=== PATIENT | female | born 1995 | race Hispanic/Latino ===

== ENCOUNTER 2017-01-04 21:54 | Emergency (ER) | payer OTHER ==
[~2017-01-04] VITALS: Ht 154.9 cm; Wt 73.9 kg
[~2017-01-04 21:54] MED LIST: NO MEDICATIONS; ZOFRAN4 MG PO
[2017-01-04 21:59] VITALS: BP 127/78
[2017-01-05] MEDS ORDERED: AMOXICILLIN500 M1 PO (00:34)
== END 2017-01-05 00:56 | disposition home or self-care (01) ==
LOC: EME 21:54
DX: K04.7 Periapical abscess without sinus (principal); Z98.818 Other dental procedure status
CPT/HCPCS: 99281; 99284

== ENCOUNTER 2017-09-07 15:12 | Emergency (ER) | payer OTHER ==
[~2017-09-07] VITALS: Ht 154.9 cm; Wt 74.9 kg
[~2017-09-07 15:12] MED LIST changes: +AMOXICILLIN500 M1 PO
[2017-09-07 16:07] VITALS: BP 112/69
== END 2017-09-07 16:24 | disposition left against medical advice (07) ==
LOC: EME 15:12
DX: R07.9 Chest pain, unspecified (principal); Z53.21 Procedure and treatment not carried out due to patient leaving prior to being seen by health care provider
CPT/HCPCS: 93005

== ENCOUNTER 2017-09-13 20:43 | Emergency (ER) | payer OTHER ==
[~2017-09-13] VITALS: Ht 154.9 cm; Wt 74.6 kg
[2017-09-13 20:59] LABS: ADD MIUA? NO; BILIRUBIN NEGATIVE; BLOOD NEGATIVE; COLOR STRAW ((YELLOW)); GLUCOSE (STRIP) NEGATIVE; KETONES 20; LEUKOCYTES NEGATIVE; NITRITE NEGATIVE; PROTEIN (STRIP) NEGATIVE; SPECIFIC GRAVITY 1.006 (1.000-1.030); UCUL ADDED? NO; UROBILINOGEN 0.2 MG/DL (0.2-1.0)
[2017-09-13 21:03] LABS: MCH 27.9 PG (29.0-34.0); MCHC 32.7 G/DL (30.0-36.0); MCV 85.3 FL (83-99); MEAN PLAT.VOLUME 11.4 uM^3 (9.5-12.4); PLATELET COUNT 197 K/uL (156-360); RBC DIS.WIDTH-CV 14.1 % (11.8-14.6); RBC DIS.WIDTH-SD 43.4 % (39-53); RED BLOOD COUNT 3.87 M/uL (3.80-5.20); WHITE BLOOD COUNT 7.3 K/uL (4.1-10.2)
[2017-09-13 21:23] LABS: CHLORIDE 106 mEq/L (99-109); POTASSIUM 3.5 mEq/L (3.7-5.4); SODIUM 139 mEq/L (136-147)
[2017-09-13 21:25] LABS: GLUCOSE 88 mg/dL (70-99)
[2017-09-13 21:26] LABS: ANION GAP 9 MEQ/L (2-14)
[2017-09-13 21:27] LABS: TOTAL BILIRUBIN 0.5 mg/dL (0.0-1.0)
[2017-09-13 21:28] LABS: ALKALINE PHOSPHATASE 85 IU/L (3-129)
[2017-09-13 21:29] LABS: GFR ESTIMATE (CALCULATED) > 59 mL/min/
[2017-09-13 21:30] LABS: UREA NITROGEN (BUN) 10 mg/dL (9-23)
[2017-09-13 21:39] LABS: QUANTITATIVE HCG < 4.0 MIU/ML
[2017-09-13] MEDS ORDERED: ZANTAC150 MG PO (21:46)
[2017-09-13] MEDS ORDERED: ZOFRAN ODT4 MG PO (21:46)
[2017-09-13 22:07] VITALS: BP 113/68
== END 2017-09-13 22:08 | disposition home or self-care (01) ==
LOC: EME 20:43
DX: K21.9 Gastro-esophageal reflux disease without esophagitis (principal); R11.10 Vomiting, unspecified
CPT/HCPCS: 80053; 81003; 84702; 85027; 99281; 99285